=== PATIENT | female | born 1980 ===

== ENCOUNTER 2024-05-20 00:22 | Emergency (ER) | payer MEDICAID ==
[~2024-05-20] VITALS: Ht 160 cm; Wt 60.3 kg
[2024-05-20 01:18] VITALS: BP 122/87
[2024-05-20] MEDS ORDERED: CONSTULOSE10 GM/15 M PO (01:18)
--- NOTE | 2024-05-20 18:29 | EKG ---
[facility] [address] [place], [place] [address] Signed Sinus tachycardia Otherwise normal ECG No previous ECGs available Confirmed by Yuly Tate MD ([id number]) on 05/20/2024 6:29:31 PM Electronically Signed By: YULY TATE MD 05/20/24 1829 PATIENT NAME: ZURI CORREA Electrocardiogram DATE OF : 80 PHYSICIAN: YULY TATE MD REPORT #: [id number] REPORT IS CONFIDENTIAL AND NOT TO BE RELEASED WITHOUT AUTHORIZATION
== END 2024-05-20 01:25 | disposition home or self-care (01) ==
LOC: ED 00:22
DX: K59.00 Constipation, unspecified (principal); Z88.8 Allergy status to other drugs, medicaments and biological substances; Z91.040 Latex allergy status
CPT/HCPCS: 74018; 84703; 93005; 93010; 99284